=== PATIENT | male | born 1975 | race Two or more races ===

== ENCOUNTER 2020-08-07 20:46 | Emergency (ER) | payer MEDICARE, OTHER ==
[~2020-08-07] VITALS: Ht 190.5 cm; Wt 100.2 kg
[2020-08-07 21:20] VITALS: BP 188/100
== END 2020-08-07 22:25 | disposition left against medical advice (07) ==
LOC: ER 20:46
DX: S05.12XA Contusion of eyeball and orbital tissues, left eye, initial encounter (principal); F17.200 Nicotine dependence, unspecified, uncomplicated; F12.10 Cannabis abuse, uncomplicated; Z13.9 Encounter for screening, unspecified; Y04.0XXA Assault by unarmed brawl or fight, initial encounter; Y93.89 Activity, other specified; Y92.89 Other specified places as the place of occurrence of the external cause; Y99.8 Other external cause status
CPT/HCPCS: 99281